=== PATIENT | female | born 1960 | race American Indian/Alaskan Native ===

== ENCOUNTER 2017-12-07 13:38 | Outpatient (CLI) | payer MEDICAID ==
--- NOTE | 2017-12-07 14:08 | Mammography Report ---
RIGHT DIGITAL DIAGNOSTIC MAMMOGRAM WITH CAD: 12/07/17 13:38:00 CLINICAL: Breast cancer survivor status post left mastectomy. COMPARISON:12/01/16 FINDINGS: The breast is mostly fatty stable irregular fibroglandular density with benign calcifications. The pattern is typical of benign surgical scar and benign fat necrosis. No mass, suspicious architectural distortion or suspicious calcifications. IMPRESSION: No mammographic evidence of malignancy. BI-RADS CATEGORY: 2 -- Benign RECOMMENDATION: Routine screening in one year. ACR BI-RADS MAMMOGRAPHIC CODES: 0 = Needs additional imaging evaluation; 1 = Negative; 2 = Benign; 3 = Probably benign; 4 = Suspicious; 5 = Malignant; 6 = Known biopsy-proven malignancy COMMENT: 1. Dense breast tissue, i.e., adenosis, fibrocystic changes, etc., may obscure an underlying neoplasm. 2. Approximately 10% of cancers are not detected with mammography. 3. A negative mammography report should not delay biopsy if a clinically suspicious mass is present. COMMENT: Patient follow-up letters are generated via our [employer] Nurse Navigator application.
== END 2017-12-07 13:39 | disposition home or self-care (01) ==
LOC: SPVWC 13:38
PROVIDERS: ATTEND Surgery
DX: C50.412 Malignant neoplasm of upper-outer quadrant of left female breast (principal)

== ENCOUNTER 2018-12-13 14:24 | Outpatient (CLI) | payer MEDICAID ==
--- NOTE | 2018-12-13 15:45 | Mammography Report ---
RIGHT DIGITAL DIAGNOSTIC MAMMOGRAM with CAD INDICATION: Breast cancer survivor status post left mastectomy and status post right reduction mammop lasty. TECHNIQUE: Digital right mammographic imaging was performed. COMPARISON: 12/07/2017 FINDINGS: Breast Density: Breast is almost entirely fatty. Inner postsurgical scar with benign fat necrosis and calcifications. Calcifications have increased si nce the last exam. No mass, suspicious architectural distortion or suspicious calcifications. IMPRESSION: Benign findings and no suspicious finding. BI-RADS Category 2: Benign. Recommend routine screening mammography in one year A "normal" or negative report should not discourage follow up or biopsy of a clinically significant f inding. A written summary of these findings will be mailed to the patient. The patient will be entered into a mammography reporting system which will generate a reminder letter for the patient's next appointmen t at the appropriate interval. FURTHER INFORMATION: According to the [employer], yearly mammograms are recommend ed starting at age 40 and continuing as long as a woman is in good health. Breast MRI is recommended for women with an approximately 20-25% or greater lifetime risk of breast cancer, including women wi th a strong family history of breast or ovarian cancer and women who have been treated for Hodgkin's disease. Signer Name: Gal Lamb MD Signed: 12/13/2018 3:40 PM Workstation Name: [id number]
== END 2018-12-13 14:25 | disposition home or self-care (01) ==
LOC: SPVWC 14:24
PROVIDERS: ATTEND Surgery
DX: C50.412 Malignant neoplasm of upper-outer quadrant of left female breast (principal)

== ENCOUNTER 2020-01-17 14:50 | Outpatient (CLI) | payer MEDICAID ==
--- NOTE | 2020-01-17 17:09 | Magnetic Resonance Report ---
Bilateral breast MRI with and without contrast. History: Personal history of left breast cancer with mastectomy and chemotherapy, history of right b reast reduction surgery, family history of breast cancer Procedure: Axial T1 and T2-weighted fat-sat images were obtained precontrast. 18 cc MultiHance was i njected intravenously and serial axial T1-weighted images with fat saturation were obtained postcontr ast. 3-D MIP projections, Kinetic analysis and subtraction imaging was utilized to evaluate. A [email or web address] 8 channel breast coil was utilized for image acquisition. Comparison: Right mammogram 12/22/2019 Findings: Background level of enhancement is mild. No suspicious axillary or clavicular nodes are identified. No abnormal bone marrow signal is seen. No significant chest wall enhancement is noted. Right breast: Scarring is again seen. No suspicious areas of enhancement are noted. Left breast: Mastectomy changes with reconstruction are noted. No suspicious lesions are seen. Impression: No suspicious lesions are seen BIRADS: 2: Benign Signer Name: Aj Benjamin MD Signed: 01/17/2020 5:04 PM Workstation Name: [id number]
== END 2020-01-17 14:51 | disposition home or self-care (01) ==
LOC: SPVIMAG 14:50
PROVIDERS: ATTEND Surgery
DX: Z12.31 Encounter for screening mammogram for malignant neoplasm of breast (principal); Z90.12 Acquired absence of left breast and nipple; Z80.3 Family history of malignant neoplasm of breast; Z85.3 Personal history of malignant neoplasm of breast
CPT/HCPCS: A9577; C8908; 77049